=== PATIENT | female | born 2000 | race Caucasian/White ===

== ENCOUNTER 2021-03-19 16:20 | Emergency (ER) | payer OTHER ==
[2021-03-19 17:19] LABS: #Eosinphils 0.1 thou/uL (0.0-0.7); #Lymphocytes 0.8 thou/uL (1.20-3.40); #Monocytes 1.1 thou/uL (0.11-0.59); #Neutrophils 11.2 thou/uL (1.40-6.50); %Basophils 0.3 % (0.0-1.0); %Eosinophils 0.7 % (0.0-10.0); %Lymphocytes 6.1 % (21.0-51.0); %Monocytes 8.5 % (0.0-10.0); %Neutrophils 84.4 % (42.0-75.0); Hemoglobin 10.8 g/dL (12.0-16.0); Mean Corpuscular HGB CONC 32.6 g/dL (32.0-36.0); Mean Corpuscular Hemoglobin 29.2 pg (27.0-31.0); Mean Corpuscular Volume 89.5 fL (78.0-98.0); Mean Platelet Volume 10.4 fL (7.4-10.4); Platelet Count 156 thou/uL (130-400); RBC Distribution Width 11.8 % (11.5-14.5); White Blood Cell (WBC) Count 13.3 thou/uL (4.8-10.8)
[2021-03-19 17:36] LABS: ALT (SGPT) 11 U/L (8-55); AST (SGOT) 15 U/L (5-34); Albumin 3.2 g/dL (3.5-5.0); Alkaline Phosphatase 116 U/L (40-110); Anion Gap 14 mmol/L (10-20); BUN (Urea Nitrogen) 5 mg/dL (7.0-18.7); Bilirubin, Total 0.4 mg/dL (0.2-1.2); Calc. Creatinine Clearance 0 mL/min (70-130); Calcium 8.7 mg/dL (7.8-10.44); Carbon Dioxide 18 mmol/L (22-29); Chloride 108 mmol/L (98-107); Globulin 2.6 g/dL (2.4-3.5); Glucose 94 mg/dL (70-105); Potassium 3.5 mmol/L (3.5-5.1); Protein, Total 5.8 g/dL (6.0-8.3); Sodium 136 mmol/L (136-145)
[2021-03-19] MEDS ORDERED: Sodium Chloride 0.9% 2,000 ML ONE (17:51)
[2021-03-19] MEDS ORDERED: Acetaminophen 325 MG TAB ONE (17:51)
[2021-03-19] MEDS ORDERED: Acetaminophen 325 MG Suppository ONE (17:51)
[2021-03-19] MEDS ORDERED: Cefepime 1 GM VIAL ONE (18:11)
[2021-03-19] MEDS ORDERED: Sodium Chloride 0.9% 100 ML ONE (18:11)
[2021-03-19 18:27] LABS: SARS-CoV-2 NAA Rapid Test Not Detected (NotDetected)
[2021-03-19 18:55] LABS: Bilirubin Negative (Negative); Blood, Urine Negative (Negative); Clarity Clear (Clear); Glucose, Urine (Dipstick) Negative (Negative); Ketone, Urine Negative (Negative); Leukocyte Negative (Negative); Nitrite Negative (Negative); Protein, Urine (Dipstick) Negative (Neg-Trace); Specific Gravity, Urine 1.015 (1.005-1.030); Urobilinogen 0.2 mg/dL (Less than 2)
== END 2021-03-19 20:56 | disposition home or self-care (01) ==
LOC: MADERS 16:20
DX: O99.513 Diseases of the respiratory system complicating pregnancy, third trimester (principal); J06.9 Acute upper respiratory infection, unspecified; J45.909 Unspecified asthma, uncomplicated; Z20.822 Contact with and (suspected) exposure to COVID-19; Z3A.34 34 weeks gestation of pregnancy
CPT/HCPCS: 0240U; 36415; 71045; 80053; 81003; 83605; 84484; 84702; 85025; 87040; 87086; 93005; 96365; J0692; J3490; J7050; J7620

== ENCOUNTER 2023-06-25 18:02 | Emergency (ER) | payer OTHER, SELFPAY ==
[2023-06-25 18:38] LABS: BHCG - Serum POSITIVE (NEGATIVE); Pregs Control Background? CLEAR/WHITE (CLR/WHITE); Pregs Control Bar Appear? YES (CONTROL BAR)
== END 2023-06-25 19:23 | disposition home or self-care (01) ==
LOC: MADERS 18:02
DX: O99.891 Other specified diseases and conditions complicating pregnancy (principal); R10.31 Right lower quadrant pain; Z3A.01 Less than 8 weeks gestation of pregnancy; V49.9XXA Car occupant (driver) (passenger) injured in unspecified traffic accident, initial encounter
CPT/HCPCS: 84702; 84703; 99284

== ENCOUNTER 2023-08-18 02:26 | Emergency (ER) | payer OTHER, SELFPAY | END 2023-08-18 03:33 | disposition home or self-care (01) | LOC: MADERS 02:26 | DX: O20.0 Threatened abortion (principal); Z3A.13 13 weeks gestation of pregnancy ==

== ENCOUNTER 2024-05-06 05:16 | Emergency (ER) | payer OTHER ==
[2024-05-06] MEDS ORDERED: Ibuprofen 200 MG TAB ONE (05:36)
== END 2024-05-06 05:41 | disposition home or self-care (01) ==
LOC: MADERS 05:16
DX: M79.10 Myalgia, unspecified site (principal); R51.9 Headache, unspecified
CPT/HCPCS: 99283